=== PATIENT | female | born 1980 | race Caucasian/White ===

== ENCOUNTER 2023-03-24 22:01 | Emergency (ER) | payer MEDICAID ==
[~2023-03-24] VITALS: Ht 152.4 cm; Wt 46.3 kg
[2023-03-24 22:59] VITALS: BP 104/76
[2023-03-24] MEDS ORDERED: ACETAMINOPHEN 325 MG TABLET PO ONE (23:00)
[2023-03-24] MEDS ORDERED: AMOX-430 PO ×2 (23:05→23:25)
[2023-03-24] MEDS ORDERED: AMOX/CLAVULANATE 875 MG TABLET ONE (23:07)
[2023-03-24] MEDS ORDERED: ACETAMINOPHEN ES 500 MG TABLET ONE (23:07)
--- NOTE | 2023-03-24 23:20 | NUR ---
Patient discharged to home in stable condition. Written and verbal after care instructions given. Patient verbalizes understanding of instruction.
[2023-03-24] MEDS ORDERED: AMOX/CLAVULANATE 875 MG TABLET PO ONE (23:30)
== END 2023-03-24 23:59 | disposition home or self-care (01) ==
LOC: ER 22:04
DX: J02.9 Acute pharyngitis, unspecified (principal); R50.9 Fever, unspecified; Z79.899 Other long term (current) drug therapy